=== PATIENT | female | born 1985 | race Caucasian/White ===

== ENCOUNTER → 2017-12-14 09:15 | Outpatient (CLI) | payer OTHER, SELFPAY ==
--- NOTE | 2017-12-14 09:15 | DT_ITS ---
This patient was seen during an EMR downtime December 12, 2017 - December 19, 2017. This patient may have a combination of paper and electronic documentation or all paper documentation. All documentation is viewable within the e-chart portion of [employer] for each patient visit.
[2017-12-28 10:40] LABS: HPV Reflexed? NOT INDICATED
== END ==
PROVIDERS: Visit Provider Obstetrics & Gynecology
DX: Z12.4 Encounter for screening for malignant neoplasm of cervix (principal)
CPT/HCPCS: 88175; G0145

== ENCOUNTER → 2018-07-06 12:50 | Outpatient (CLI) | payer OTHER, SELFPAY ==
--- NOTE | 2018-07-06 12:53 | VDLE_ITS ---
Reason For Study: pain, swelling, chronic venous insufficiency RIGHT LEFT CFV is compressible, spontaneous, phasic, CFV is compressible, spontaneous, phasic, competent and demonstrates normal competent, and demonstrates normal augmentation. augmentation. FV is compressible, spontaneous, phasic, FV is compressible, spontaneous, phasic, competent and demonstrates normal competent and demonstrates normal augmentation. augmentation. POP V is compressible, spontaneous, phasic, POP V is compressible, spontaneous, phasic, competent and demonstrates normal competent and demonstrates normal augmentation. augmentation. T/P Trunk is compressible. T/P Trunk is compressible. PTV is compressible. PTV is compressible. RT PerV is compressible. LT PerV is compressible. S-F Junction is competent. SF-Junction is competent. GSV is competent throughout. GSV is incompetent throughout for greater SSV is incompetent for greater than .5 than .5 seconds. GSV measures .725 x .777 cm. seconds. SSV measures .270 x .287 cm. ASV at the groin moving medially is Procedure incompetent for greater than .5 seconds. ASV Exam performed in department. measures .613 x .667 cm. The exam was diagnostic. SSV is competent. A preliminary report was called and/or faxed to Dr. Ng. Interpretation Summary Deep veins of the lower extremities are bilaterally patent and compressible segmentally. There is no evidence of deep vein thrombosis on either side. Valvular competence appears intact within the proximal deep venous systems bilaterally. The greater saphenous veins appear bilaterally patent and compressible segmentally. Sapheno-femoral junctions are bilaterally competent . The right greater saphenous vein appears segmentally competent. The left greater saphenous vein appears segmentally incompetent. The right small saphenous vein is patent and incompetent. The left small saphenous vein is patent and competent. A left accessory saphenous vein with origin near the sapheno-femoral junction is incompetent. Ordering Physician: Camilo Ng Performed By: Mervin Salguero, RVT
== END ==
PROVIDERS: Family Provider Family Medicine; PCP Family Medicine; Referring Provider Surgery; Visit Provider Surgery
DX: M79.89 Other specified soft tissue disorders (principal); M79.609 Pain in unspecified limb; I87.2 Venous insufficiency (chronic) (peripheral); I83.10 Varicose veins of unspecified lower extremity with inflammation
CPT/HCPCS: 93970

== ENCOUNTER 2018-12-21 06:27 | Day surgery (SDC) | payer OTHER, SELFPAY ==
--- NOTE | 2018-12-11 20:12 | PCM.HP.STD ---
Problem List (1) Chronic venous insufficiency Status: Chronic (2) Varicose veins with inflammation Status: Chronic (3) Leg pain Status: Chronic Qualifiers: Laterality: left Qualified Code(s): M79.605 - Pain in left leg (4) Leg swelling Status: Chronic History of Present Illness Date of Admission: 12/21/18 Chief Complaint: Chronic venous insufficiency, varicose veins with inflammation, leg pain, leg swelling?Left lower extremity The patient is a 33 year old F [with a long-standing history of chronic venous insufficiency, varicose veins with inflammation, leg pain, and leg swelling involving her left lower extremity. For approximately 5 years, the patient has experienced pain, discomfort, and burning in her left lower extremity. Her symptoms have become increasingly more severe. They have been exacerbated by pregnancies. Her pain and discomfort have been associated with swelling in the left lower extremity. The patient denies a history of thrombophlebitis. She has undergone no previous vein procedures in the past. A venous duplex examination has been performed, revealing incompetence of the left great saphenous vein in the left accessory saphenous vein originating at the groin and extending medially. The implications of this diagnosis have been discussed with patient in detail. The options of management have been fully explained. Conservative treatment measures were implemented, which included leg elevation, avoidance of idle standing and sitting, graduated compression stockings, weight control measures, active lifestyle, otrw-apd-brofbxq analgesics, etc. Despite these measures, the patient has remained symptomatic, with symptoms which have adversely affected daily activities, quality of life, and job functions. ] The patient's past medical history is negative for myocardial infarction, congestive heart failure, hypertension, diabetes mellitus, cerebrovascular accident, cancer, renal disease, pulmonary disease, thyroid disease, hyperlipidemia, peripheral arterial occlusive disease, arthritis, and gastroesophageal reflux disease. 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 The patient's mother is 57 years of age with a history of hyperlipidemia, hypertension, and coronary artery disease. Review of Systems Constitutional: Denies: Chills, Fever, Weight Change HEENT: Denies: Head Aches, Sinus Congestion, Sinus Drainage Cardiovascular: Denies: Chest Pain, Palpitations Respiratory: Denies: Cough, Shortness of breath at rest, Sputum production Gastrointestinal: Denies: Abdominal Pain, Nausea, Vomiting Genitourinary: Denies: Dysuria Musculoskeletal: Denies: Joint Pain, Joint Tenderness Skin: Denies: Rash, Wounds Neurological: Denies: Numbness, Tingling, Focal weakness Psychiatric: Denies: Anxiety, Depression, Homicidal Ideations, Suicidal Ideations Hematologic/ Lymphatic: Denies: Easy Bruising, Easy Bleeding VTE Information - Inpt Only VTE Present on Admission: No VTE Mechan Device Prophylaxis: SCD's - Right VTE Pharm Prophylaxis ordered?: Yes - Physical Exam General: Alert, Oriented x3, Cooperative, No apparent distress, Well developed, Well nourished HEENT: Atraumatic, PERRLA, EOMI, Normocephalic Oral: Moist Mucosa, No Gingival or Mucosal Lesions/ Ulcerations Neck: Supple, No JVD, Negative Carotid Bruits, Negative Hepatojugular Reflux, No Nuchal Rigidity, Trachea Midline Lungs: Clear to auscultation, Normal air movement, No rhonchi, No wheeze, No rales Cardiovascular: Regular rate, Regular Rhythm, Normal S1, Normal S2, No murmurs Abdomen: Bowel Sounds Present, Soft, Non Tender Extremities: No clubbing, No cyanosis, No edema, Capillary Refill Less than 3 Seconds, No Calf Tenderness, Peripheral Pulses Normal, - - Lower extremities are warm and well-perfused. Multiple large varicosities are noted in the left lower extremity. Skin: No rashes, No breakdown Musculoskeletal: No Tenderness to Palpation of Joints or Extremities, No Muscle Wasting Neurological: Cranial nerves II-XII grossly intact, Neuro grossly intact Psych/Mental Status: Normal Affect, Appropriate, Alert and oriented to time, place, person, mood and affect Assessment/Plan This is a 33-year-old generally healthy white female with a long-standing history of chronic venous insufficiency, varicose veins with inflammation, leg pain, leg swelling involving her left lower extremity. Venous duplex examination has revealed incompetence involving the left great saphenous vein in the left accessory saphenous vein. The implications of this diagnosis have been discussed with the patient in detail. The options of management have been fully explained. Conservative treatment measures have been implemented, including leg elevation, avoidance of idle standing and sitting, graduated compression stockings, weight control measures, active lifestyle, inxl-uff-ctwaizb analgesics, etc. Despite these measures, the patient has remained symptomatic, with symptoms which have adversely affect her daily activities, quality of life, and job functions. The indications and risks of endovenous laser ablation of the left great saphenous vein in the left accessory saphenous vein have been discussed with patient in detail. The indications and risks of the procedure have been thoroughly explained. Appropriate post-procedure expectations have been discussed. The routine preprocedure consent process has been undertaken.
[2018-12-13 10:15] VITALS: BP 140/70; PULSE 85; RESP 16; TEMP 36.9; O2SAT 96; BMI 29.2
[2018-12-21 06:50] LABS: Internal QC Validated? YES +Cl - CLEAR BKGD; Pregnancy, Urine Negative Negative
[2018-12-21 06:58] VITALS: BP 149/87; PULSE 75; RESP 16; TEMP 36.8; O2SAT 98; BMI 29.2
[2018-12-21] MEDS: Enoxaparin 30 MG/0.3 ML Syringe SC (07:12)
[2018-12-21] MEDS: Cefazolin 2 GM in 0.9% Normal Saline 100 ML IV (08:06)
[2018-12-21 10:03] VITALS: BP 111/77; BP 149/87; PULSE 88; RESP 16; TEMP 36.4; O2SAT 93
--- NOTE | 2018-12-21 10:04 | DCINST_ITS ---
Discharge Diet: No Restrictions Discharge Activity: May Not Drive Weight Bearing Status: Weight bearing as tolerated Lifting Restrictions: 10 pounds Keep extremity elevated above heart level: Left Leg Call your doctor if you observe: Shortness of breath, Fainting spells, Chest pain, Prolonged hiccoughing, Uncontrolled pain Suture Line Care: Avoid Pulling/Pushing Remove Dressing in (days):: 2 - Then rewrap daily with Clyde from base of toes to upper thigh. Allergies/Adverse Reactions: Allergies blue dye Allergy (Verified 12/13/18 10:10) Rash Medications to take at Discharge Multivit with Calcium,Iron,Min [Multiple Vitamins For Women] 1 each PO DAILY 12/13/18 Primary Care Physician: Sean Huerta III, MD [Primary Care Provider] - Test Results: Test results from this visit will be discussed in further detail at your follow- up appointment, if applicable. Please Follow Up With: Camilo Ng MD - Call [phone] to schedule a followup appointment. When: 10-14 days
[2018-12-21 10:15] VITALS: BP 121/83; BP 149/87; PULSE 90; RESP 16; O2SAT 95
[2018-12-21 10:25] VITALS: BP 123/87; BP 149/87; PULSE 84; RESP 16; TEMP 36.2; O2SAT 100
[2018-12-21 10:57] VITALS: BP 149/87
--- NOTE | 2018-12-22 08:12 | PCM.OPRPT ---
Problem List (1) Chronic venous insufficiency Status: Chronic (2) Varicose veins with inflammation Status: Chronic (3) Leg pain Status: Chronic Qualifiers: Laterality: left Qualified Code(s): M79.605 - Pain in left leg (4) Leg swelling Status: Chronic Report of Operation Date of Procedure: 12/21/18 Pre-Operative Diagnosis: Chronic venous insufficiency, varicose veins with inflamation, leg pain, leg swelling - left lower extremity Post-Operative Diagnosis: Chronic venous insufficiency, varicose veins with inflamation, leg pain, leg swelling - left lower extremity Surgery/Procedure Performed:: 1. Endovenous laser ablation of left great saphenous vein. 2. Endovenous laser ablation of left accessory saphenous vein (S1) Description of Surgical Findings:: As above Type of Anesthesia:: General, Tumescent Anesthesiologist: Charly Guadalupe Specimen's removed: None Drains: None Estimated Blood Loss (mL): Minimal Description of Procedure: This is a 33-year-old female with a long-standing history of chronic venous insufficiency, varicose veins with inflammation, leg pain, and leg swelling involving her left lower extremity. A preoperative venous duplex examination revealed valvular incompetence involving the left great saphenous vein and the left accessory saphenous vein at the S1 position. The incompetent accessory saphenous vein was felt to be clinically significant, as it was apparent that it was associated with a large tuft of bulging varicosities on the left upper postero-medial thigh. The implications of the patient's diagnosis were discussed with the patient in detail. The options of management were fully explained. Conservative treatment measures were implemented, which included leg elevation, avoidance of idle standing and sitting, graduated compression stockings, weight control measures, active lifestyle, hwdo-bjd-qdfzmus analgesics, etc. Despite these measures, the patient remained symptomatic, with symptoms which adversely affected her daily activities, quality of life, and job functions. The indications and risks of endovenous laser ablation of the left great saphenous vein and the left accessory saphenous vein were discussed with the patient in detail. The appropriate preprocedure consent process was undertaken. The patient underwent ultrasound marking of the left great saphenous vein and the left accessory saphenous vein at the S1 position preoperatively. She was brought to the operating room suite, placed supine upon the operating room table, where general anesthesia was administered by the anesthesia staff. The patient's left lower extremity and left groin were prepped and draped in the appropriate sterile manner. The patient was placed in reverse Trendelenburg position. Ultrasonography was used to image the left great saphenous vein in the distal calf. The micropuncture technique was used to access the left great saphenous vein percutaneously in the distal calf. In this manner, a 0.018 inch guidewire was advanced intraluminally into the left great saphenous vein, and was visualized by ultrasonography. A micropuncture sheath was advanced over the guidewire. The 0.018 inch guidewire was exchanged for a 0.035 inch guidewire, which was then advanced intraluminally to a level just distal to the left sapheno?femoral junction, as confirmed by ultrasound imaging. A long 4 Lithuanian sheath was then advanced over the guidewire, and its tip was positioned approximately 2 cm distal to the left sapheno?femoral junction. Attention was then directed to the incompetent left accessory saphenous vein at the S1 position. Using ultrasound imaging and the micropuncture technique, several attempts were made to access the incompetent accessory saphenous vein. Access was achieved, but advancement of the 0.018 inch guidewire proximally into the incompetent accessory saphenous vein could not be achieved, for reasons uncertain. Therefore, the decision was made to attempt access into the incompetent left accessory saphenous vein at the S1 position in retrograde fashion. Using ultrasound imaging and the micropuncture technique, access was achieved to the incompetent accessory saphenous vein from above, and a 0.018 inch guidewire was positioned intraluminally in retrograde fashion, accessing the incompetent accessory saphenous vein from the cephalad direction. With the 0.[address], a 5 Lithuanian sheath was then advanced over the guidewire and into position intraluminally within the incompetent accessory saphenous vein. Perivenous tumescent anesthesia was injected segmentally in standard fashion. The AngioDynamics laser fiber was introduced intraluminally into the incompetent accessory saphenous vein via the 5 Lithuanian sheath. Ultrasound imaging was utilized to visualize the AngioDynamics laser fiber. With the AngioDynamics laser fiber in the desired location within the lumen of the distal incompetent accessory saphenous vein, just proximal to the large tuft of varicosities, the 5 Lithuanian sheath was withdrawn, leaving the laser fiber in the desired position. The patient was placed in Trendelenburg position, and the laser fiber was activated. The laser fiber was slowly withdrawn at a constant rate throughout the length of the incompetent accessory saphenous vein, while visualizing the tip of the laser fiber by ultrasonography throughout its excursion in the accessory saphenous vein. In this manner, the accessory saphenous vein was ablated. The energy applied was approximately 60 to 80 J/cm. Following the laser ablation, the laser fiber and sheath were removed, and manual pressure was briefly applied to the percutaneous access site to achieve hemostasis. Attention was then redirected to the long 4 Lithuanian sheath which had been previously placed intraluminally within the left great saphenous vein. Perivenous tumescent anesthesia was injected from the 4 Lithuanian sheath access site up to the tip of the sheath near the left sapheno?femoral junction. This was performed segmentally using ultrasound imaging. The AngioDynamics laser fiber was then introduced into the 4 Lithuanian sheath and coupled appropriately. Ultrasonography was used to confirm that the tip of the laser fiber was positioned within the left great saphenous vein approximately 2 to 2-1/2 cm distal to the left sapheno?femoral junction. The patient was placed in Trendelenburg position and the laser fiber was activated. The Angio-Dynamics laser was slowly withdrawn at a constant rate throughout the length of the left great saphenous vein, thereby ablating the left great saphenous vein segmentally. The energy applied was approximately 60 to 80 J/cm. Following the laser ablation, the laser fiber and sheath were removed, and manual pressure was briefly applied to the percutaneous access site to achieve hemostasis. After assuring satisfactory hemostasis, the access sites were approximated using Cavilon and Steri-Strips. Dry sterile gauze dressings were applied over each of the access sites, and the leg was wrapped from the base of the toes to the upper thigh with Kerlix, followed by Clyde wrap. The blood loss for the procedure was minimal. The sponge, needle, and instrument counts at the end of the procedure were correct. the patient tolerated the procedure well and was transported from the operating room to the postanesthesia care unit in stable condition. The amount of tumescent anesthesia utilized, number of joules applied, and treatment times were recorded separately. Grafts/Implants Used: None - Complications None - Admit VTE Documentation VTE Present on Admission: No VTE Mechan Device Prophylaxis: SCD's - Right VTE Pharm Prophylaxis ordered?: Yes
== END 2018-12-21 11:34 | disposition home or self-care (01) ==
LOC: SDC 06:29 → AC 06:31
PROVIDERS: Anesthesiology; Family Provider Family Medicine; PCP Family Medicine; Referring Provider Surgery; Visit Provider Surgery
PROC: (CPT 36478; principal; 2018-12-21 07:45)
DX: I83.12 Varicose veins of left lower extremity with inflammation (principal); I87.2 Venous insufficiency (chronic) (peripheral); M79.89 Other specified soft tissue disorders; M79.662 Pain in left lower leg
CPT/HCPCS: 36478; 36479; 81025; 93971; J7040; J7120; C1894; J2405

== ENCOUNTER → 2019-03-27 | Outpatient (CLI) | payer OTHER, SELFPAY ==
--- NOTE | 2019-03-27 13:56 | VDLE_ITS ---
Reason For Study: chronic venous insufficiency, S/P EVLA RIGHT LEFT CFV is compressible, spontaneous, phasic, CFV is compressible, spontaneous, phasic, competent and demonstrates normal competent, and demonstrates normal augmentation. augmentation. Procedure FV is compressible, spontaneous, phasic, Exam performed in department. competent and demonstrates normal The exam was diagnostic. augmentation. POP V is compressible, spontaneous, phasic, competent and demonstrates normal augmentation. T/P Trunk is compressible. PTV is compressible. LT PerV is compressible. GSV is occluded S/P EVLA. ASV at the groin is incompetent for greater than .5 seconds. ASV measures .34 x .35 cm. ASV is feeding varicose veins. Interpretation Summary Deep veins of the left lower extremity are patent and compressible segmentally. There is no evidence of left lower extremity deep vein thrombosis. Valvular competence appears intact within the proximal deep venous system on the left . The left great saphenous vein is occluded, consistent with a prior endothermal ablation procedure. The left accessory saphenous vein at the groin is incompetent. Ordering Physician: Camilo Ng Performed By: Mervin Salguero RVT
== END | disposition home or self-care (01) ==
LOC: CVS 13:54
PROVIDERS: Family Provider Family Medicine; PCP Family Medicine; Referring Provider Surgery; Visit Provider Surgery
DX: I87.2 Venous insufficiency (chronic) (peripheral) (principal); I83.10 Varicose veins of unspecified lower extremity with inflammation
CPT/HCPCS: 93971

== ENCOUNTER → 2020-03-26 | Outpatient (CLI) | payer OTHER, SELFPAY | END | disposition home or self-care (01) | LOC: EMPH 22:53 | PROVIDERS: PCP Family Medicine; Visit Provider Family Medicine Geriatric Medicine | DX: Z11.59 Encounter for screening for other viral diseases (principal) | CPT/HCPCS: 87635; U0003 ==

== ENCOUNTER 2020-04-08 08:03 | Outpatient (RCR) | payer OTHER, SELFPAY | END 2020-04-09 23:59 | LOC: EMPH 08:03 | PROVIDERS: PCP Family Medicine; Visit Provider Family Medicine Geriatric Medicine | DX: Z11.59 Encounter for screening for other viral diseases (principal) | CPT/HCPCS: 87635; U0003 ==

== ENCOUNTER 2020-05-08 18:45 | Outpatient (RCR) | payer OTHER, SELFPAY | END 2020-05-10 23:59 | LOC: EMPH 18:45 | PROVIDERS: PCP Family Medicine; Visit Provider Family Medicine Geriatric Medicine | DX: Z03.818 Encounter for observation for suspected exposure to other biological agents ruled out (principal) | CPT/HCPCS: 87426 ==

== ENCOUNTER 2020-06-04 10:52 | Outpatient (RCR) | payer OTHER, SELFPAY | END 2020-06-09 23:59 | LOC: EMPH 10:52 | PROVIDERS: PCP Family Medicine; Visit Provider Family Medicine Geriatric Medicine | DX: Z03.818 Encounter for observation for suspected exposure to other biological agents ruled out (principal) | CPT/HCPCS: 87426 ==

== ENCOUNTER 2020-07-09 14:16 | Outpatient (RCR) | payer OTHER, SELFPAY | END 2020-07-10 23:59 | LOC: EMPH 14:16 | PROVIDERS: PCP Family Medicine; Referring Provider Family Medicine Geriatric Medicine; Visit Provider Family Medicine Geriatric Medicine | DX: Z03.818 Encounter for observation for suspected exposure to other biological agents ruled out (principal) | CPT/HCPCS: 87426 ==

== ENCOUNTER 2020-08-08 08:41 | Outpatient (RCR) | payer OTHER, SELFPAY | END 2020-08-10 23:59 | LOC: EMPH 08:41 | PROVIDERS: PCP Family Medicine; Referring Provider Family Medicine Geriatric Medicine; Visit Provider Family Medicine Geriatric Medicine | DX: Z03.818 Encounter for observation for suspected exposure to other biological agents ruled out (principal) | CPT/HCPCS: 87426 ==

== ENCOUNTER 2020-09-05 09:53 | Outpatient (RCR) | payer OTHER, SELFPAY | END 2020-09-07 23:59 | LOC: EMPH 09:53 | PROVIDERS: PCP Family Medicine; Referring Provider Family Medicine Geriatric Medicine; Visit Provider Family Medicine Geriatric Medicine | DX: Z03.818 Encounter for observation for suspected exposure to other biological agents ruled out (principal) | CPT/HCPCS: 87426 ==

== ENCOUNTER 2020-10-01 11:54 | Outpatient (RCR) | payer OTHER, SELFPAY | END 2020-10-08 23:59 | LOC: EMPH 11:54 | PROVIDERS: PCP Family Medicine; Referring Provider Family Medicine Geriatric Medicine; Visit Provider Family Medicine Geriatric Medicine | DX: Z03.818 Encounter for observation for suspected exposure to other biological agents ruled out (principal) | CPT/HCPCS: 87426 ==

== ENCOUNTER 2020-10-17 10:29 | Outpatient (RCR) | payer OTHER, SELFPAY | END 2020-11-07 23:59 | LOC: EMPH 10:29 | PROVIDERS: PCP Family Medicine; Referring Provider Family Medicine Geriatric Medicine; Visit Provider Family Medicine Geriatric Medicine | DX: Z03.818 Encounter for observation for suspected exposure to other biological agents ruled out (principal) | CPT/HCPCS: 87426 ==

== ENCOUNTER 2021-01-06 11:20 | Outpatient (RCR) | payer OTHER, SELFPAY | END 2021-01-07 23:59 | LOC: EMPH 11:20 | PROVIDERS: PCP Family Medicine; Referring Provider Family Medicine Geriatric Medicine; Visit Provider Family Medicine Geriatric Medicine | DX: Z03.818 Encounter for observation for suspected exposure to other biological agents ruled out (principal) | CPT/HCPCS: 87426 ==

== ENCOUNTER 2021-03-10 16:12 | Outpatient (RCR) | payer OTHER, SELFPAY | END 2021-03-10 23:59 | disposition home or self-care (01) | LOC: EMPH 16:12 | PROVIDERS: PCP Family Medicine; Referring Provider Family Medicine Geriatric Medicine; Visit Provider Family Medicine Geriatric Medicine | DX: Z03.818 Encounter for observation for suspected exposure to other biological agents ruled out (principal) | CPT/HCPCS: 87426 ==

== ENCOUNTER 2021-03-23 13:38 | Outpatient (RCR) | payer OTHER, SELFPAY | END 2021-04-09 23:59 | LOC: EMPH 13:38 | PROVIDERS: PCP Family Medicine; Referring Provider Family Medicine Geriatric Medicine; Visit Provider Family Medicine Geriatric Medicine | DX: Z03.818 Encounter for observation for suspected exposure to other biological agents ruled out (principal) | CPT/HCPCS: 87426 ==

== ENCOUNTER → 2021-04-08 11:34 | Outpatient (CLI) | payer OTHER, SELFPAY ==
[2021-04-10 19:58] LABS: HPV Reflexed? NOT INDICATED
== END ==
PROVIDERS: PCP Family Medicine; Visit Provider Obstetrics & Gynecology
DX: Z12.4 Encounter for screening for malignant neoplasm of cervix (principal)
CPT/HCPCS: 88175; G0145

== ENCOUNTER 2021-05-12 11:14 | Outpatient (RCR) | payer OTHER, SELFPAY | END 2021-06-09 23:59 | LOC: EMPH 11:14 | PROVIDERS: PCP Family Medicine; Referring Provider Family Medicine Geriatric Medicine; Visit Provider Family Medicine Geriatric Medicine | DX: Z03.818 Encounter for observation for suspected exposure to other biological agents ruled out (principal) | CPT/HCPCS: 87426 ==

== ENCOUNTER 2021-07-09 10:15 | Outpatient (RCR) | payer OTHER, SELFPAY | END 2021-07-10 23:59 | LOC: EMPH 10:15 | PROVIDERS: Referring Provider Family Medicine Geriatric Medicine; Visit Provider Family Medicine Geriatric Medicine | DX: Z03.818 Encounter for observation for suspected exposure to other biological agents ruled out (principal) | CPT/HCPCS: 87426; 87635; U0003; U0005 ==

== ENCOUNTER 2021-07-24 12:22 | Emergency (ER) | payer OTHER, SELFPAY ==
[2021-07-24 12:23] VITALS: BP 159/115; PULSE 98; RESP 16; TEMP 36.4; O2SAT 98; BMI 28.2
--- NOTE | 2021-07-24 13:56 | EDS_ITS ---
HPI History of Present Illness Chief Complaint: Chest Other Narrative Narrative: 36-year-old female presenting for evaluation. She states that she had a mechanical fall on the fifth and was seen at [facility] and evaluated. She did not have any images done at that time. She states that she fell slipping onto her buttocks and hurting her tailbone and that her upper back and upper chest wall. patient states that the pain in her tailbone improved however intermittently she has some left-sided mid back pain as well as radiation over her shoulder. She does not have any cardiac history. No history of DVT/PE. Patient states has been taking Aleve at home. Patient states she t ried to follow-up with her primary care physician but he has retired and she is having difficulty getting an office visit before September. She does not have any shortness of breath, fever, chills. PFSH PFSH Medical History no medical history Home Medications nrfunncnudzz-Rb-jcbl-minerals [Multiple Vitamins For Women] 1 ea PO DAILY 12/13/18 [History Last Taken Unknown] prednisone 50 mg PO DAILY #5 tab 07/24/21 [Rx Last Taken Unknown] tizanidine [Zanaflex] 2 mg PO QHS PRN #20 tab 07/24/21 [Rx Last Taken Unknown] Allergy/AdvReac Type Severity Reaction Status Date / Time blue dye Allergy Rash Verified 07/24/21 12:25 Social History Smoking Status: Never smoker ROS ROS ED Constitutional Constitutional ED: Denies chills or fever(s) Eyes Eyes: Denies blurry vision or diplopia ENT ENT ED: Denies rhinorrhea or sore throat Cardiovascular Cardiovascular: Denies palpitations or racing heartbeat Respiratory/Chest Respiratory/Chest: Denies dyspnea or sputum Gastrointestinal Gastrointestinal: Denies abdominal pain, nausea or vomiting Genitourinary Genitourinary ED: Denies dysuria or hematuria Musculoskeletal Musculoskeletal: Reports back pain Integumentary Denies abscess or rash Neurologic Neurologic: Denies headache(s) or paresthesias Psychiatric Psychiatric: Denies anxiety or depression EXAM Physical Exam Const Vital Signs: 07/24/21 12:23 Temperature 97.5 F L Temperature Source Temporal Pulse Rate 98 Respiratory Rate 16 Blood Pressure 159/115 H Blood Pressure Mean 129 Pulse Ox 98 Oxygen Delivery Method Room Air Positive well nourished General Appearance ED: NAD HEENT Reports moist mucous membranes Negative for trauma Eyes EOMs intact bilaterally Neck no lymphadenopathy and supple Resp normal respiratory effort and clear to auscultation bilaterally Cardio regular rate and regular rhythm Back/Spine Back/Spine Narrative: Tenderness to palpation left thoracic paraspinal musculature. No midline spinal deformity or step-off. No cervical spinal tenderness or deformity. Chest wall is nontender. I am able to reproduce some of the discomfort with head movement and flexion. Extremity normal to inspection General Extremety ED: Negative for edema or tenderness General Extremity: Negative for edema Neuro oriented x3 Sensorium / Orientation: alert Psych mental status grossly normal Skin no rashes or lesions noted MDM MDM MDM Narrative Medical decision making narrative: Patient presenting with muscular pain in the back. She also has what may be costochondritis in the front. This does not sound cardiac in nature. She is PERC negative. I do not believe she needs blo od work or imaging. Patient does agree with this. I will give her muscle relaxers and a burst of prednisone. She states she wants to try to follow-up with her PCP. She is given return precautions. Impression: 1. Thoracic strain 2. Costochondritis Discharge Plan Triage Chief Complaint: Chest Other ED Provider: Adan Israel Dx/Rx/DC Orders Instructions: ED Muscle Spasm Prescriptions: New prednisone 50 mg tablet 50 mg PO DAILY Qty: 5 RF: 0 tizanidine [Zanaflex] 4 mg tablet 2 mg PO QHS PRN (Reason: muscle spasticity) Qty: 20 RF: 0 No Action ukgtfyhgfowl-Ws-qllc-minerals [Multiple Vitamin, Womens] 1 EACH tablet 1 ea PO DAILY RF: 0 Primary Care Provider: Janusz Llamas Referrals: Janusz Llamas MD [Primary Care Provider] - Disposition Disposition: Home, Self Care
--- NOTE | 2021-07-24 14:37 | EKG12_ITS ---
Test Reason : CP Blood Pressure : / mmHG Vent. Rate : 096 BPM Atrial Rate : 096 BPM P-R Int : 170 ms QRS Dur : 084 ms QT Int : 368 ms P-R-T Axes : 052 013 023 degrees QTc Int : 464 ms Normal sinus rhythm Normal ECG Confirmed by JUAN MATHEWS, GOSIA ([id number]), news copy editor [employer] ([id number]) on 07/27/2021 11:10:48 AM Referred By: JACQUELINE/NITIN Confirmed By:GOSIA MARTINEZ MD
[2021-07-24] MEDS: predniSONE 20 MG Tablet 60 MG PO (14:59)
[2021-07-24 15:00] VITALS: PULSE 75; RESP 18; O2SAT 98
== END 2021-07-24 15:00 | disposition home or self-care (01) ==
PROVIDERS: Emergency Provider Student in an Organized Health Care Education/Training Program; PCP Internal Medicine; Visit Provider Student in an Organized Health Care Education/Training Program
DX: S23.9XXA Sprain of unspecified parts of thorax, initial encounter (principal); M94.0 Chondrocostal junction syndrome [Tietze]; W01.0XXA Fall on same level from slipping, tripping and stumbling without subsequent striking against object, initial encounter
CPT/HCPCS: 93005; 99283

== ENCOUNTER 2021-08-10 08:55 | Outpatient (RCR) | payer OTHER, SELFPAY | END 2021-08-10 23:59 | LOC: EMPH 08:55 | PROVIDERS: Referring Provider Family Medicine Geriatric Medicine; Visit Provider Family Medicine Geriatric Medicine | DX: Z03.818 Encounter for observation for suspected exposure to other biological agents ruled out (principal) | CPT/HCPCS: 87426 ==

== ENCOUNTER 2021-08-24 15:45 | Outpatient (RCR) | payer OTHER, SELFPAY | END 2021-09-07 23:59 | LOC: EMPH 15:45 | PROVIDERS: PCP Internal Medicine; Referring Provider Family Medicine Geriatric Medicine; Visit Provider Family Medicine Geriatric Medicine | DX: Z03.818 Encounter for observation for suspected exposure to other biological agents ruled out (principal) | CPT/HCPCS: 87426 ==

== ENCOUNTER → 2022-10-11 | Outpatient (CLI) | payer OTHER, SELFPAY ==
--- NOTE | 2022-10-11 08:06 | VDLE_ITS ---
Reason For Study: Varicose veins RIGHT LEFT CFV is compressible, spontaneous, phasic, CFV is compressible, spontaneous, phasic, competent and demonstrates normal competent, and demonstrates normal augmentation. augmentation. Procedure FV is compressible, spontaneous, phasic, This is a venous duplex using B-mode, color competent and demonstrates normal flow and spectral Doppler. augmentation. Exam performed in department. POP V is compressible, spontaneous, phasic, A preliminary report was called and/or faxed competent and demonstrates normal to Dr Matthews. augmentation. T/P Trunk is compressible. PTV is compressible. LT PerV is compressible. SSV proximal calf is competent and measures 0.21cm x 0.21 cm. Lt GSV not visualized s/p EVLA Lt posterior thigh varicosity is occluded s/p Verat[place]a procedure. VL/Venous Duplex US, Unilateral Interpretation Summary No dvt. GSV occluded and varicose veins occluded. Ordering Physician: Castro Matthews Referring Physician: Janusz Llamas Performed By: Fabiana Sotelo, REGGIE, RVT
== END | disposition home or self-care (01) ==
LOC: CVS 08:04
PROVIDERS: PCP Internal Medicine; Visit Provider Surgery Vascular Surgery
DX: I83.892 Varicose veins of left lower extremity with other complications (principal)
CPT/HCPCS: 93971